=== PATIENT | female | born 1970 | race Caucasian/White ===

== ENCOUNTER 2019-02-08 23:47 | Emergency (ER) | payer BC, OTHER ==
[~2019-02-08] VITALS: Ht 160 cm; Wt 86.2 kg
[2019-02-08] MEDS ORDERED: LIDOCAINE/EPI 2% 1:100,00 (XYLOCAINE) 20 ML VIAL ONE (23:53)
[2019-02-09] MEDS ORDERED: TETANUS & DIPHTHERIA TOX,ADULT 0.5 ML (TENIVAC) IM ONE (00:15)
[2019-02-09] MEDS ORDERED: TETANUS,DIPTH,PERTUSS P/F (BOOSTRIX) 0.5 ML VIAL IM ONE (00:30)
--- NOTE | 2019-02-09 00:58 | ED Lower Extremity ---
General Chief Complaint: Laceration Stated Complaint: RIGHT LEG LAC Nursing Triage Note: [place] 1500 [place] and casued laceration to right lower anterior leg. unknown tetanus Nursing Sepsis Screen: No Definite Risk Source: patient History of Present Illness Date Seen by Provider: Feb 08, 2019 Time Seen by Provider: 23:49 Initial Comments 48-year-old female presenting with complaints of laceration to her right lower extremity. She states that she was at the [place] and walking on some rocks and she slipped and cut her leg. She has multiple cuts to her right lower leg. She states that this happened around 3 or 4 this afternoon. She continued to the physician stated howe. She had gone home and rinsed it off and then decided that she needed to have have repairing it. 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 She cannot remember when her last tetanus shot was for sure. Allergies and Home Medications Allergies Coded Allergies: Sulfa (Sulfonamide Antibiotics) (Verified Allergy, Unknown, 02/09/19) Home Medications Amoxicillin/Potassium Clav 1 Each Tablet, 1 EACH PO BID Prescribed by: RONI LYNN on 02/09/19 0059 Patient Home Medication List Home Medication List Reviewed: Yes Review of Systems Constitutional: No chills, No dizziness, No fever, No malaise EENTM: no symptoms reported Respiratory: no symptoms reported Cardiovascular: no symptoms reported Gastrointestinal: no symptoms reported Genitourinary: no symptoms reported Musculoskeletal: other (mild pain at the site of the cuts) Skin: see HPI Psychiatric/Neurological: Denies Numbness, Denies Paresthesia, Denies Weakness Past Npqolni-Tkznxk-Ohiqpo Hx Past Med/Social Hx: Reviewed Nursing Past Med/Soc Hx Patient Social History Alcohol Use: Denies Use Recreational Drug Use: No Smoking Status: Never a Smoker 2nd Hand Smoke Exposure: No Recent Foreign Travel: No Contact w/Someone Who Travel: No Recent Infectious Disease Expo: No Recent Hopitalizations: No Physical Abuse: No Sexual Abuse: No Mistreated: No Fear: No Seasonal Allergies Seasonal Allergies: No Past Medical History Surgeries: No Respiratory: No Cardiac: No Neurological: No Genitourinary: No Gastrointestinal: No Musculoskeletal: No Endocrine: No HEENT: No Cancer: No Psychosocial: No Integumentary: No Blood Disorders: No Physical Exam Vital Signs Vital Signs - First Documented 02/09/19 00:08 Temp 96.8 Pulse 94 Resp 16 B/P (MAP) 162/74 (103) Pulse Ox 100 O2 Delivery Room Air Capillary Refill : Less Than 3 Seconds Height, Weight, BMI Height: 5'3.00" Weight: 190lbs. oz. 86.541511jh; BMI Method:Stated General Appearance: WD/WN, no apparent distress Cardiovascular: normal peripheral pulses Legs: right leg soft tissue tenderness (mild tenderness at the site of the cuts on her right lower leg) Neurologic/Tendon: normal sensation, normal motor functions, normal tendon functions Neurologic/Psychiatric: alert, oriented x 3 Skin: warm/dry, other (multiple linear lacerations to the right lower extremity. Patient states that they happened from falling and hitting against concrete and rocks where they have broken up a Dam and built a new one) Procedures/Interventions Wound Location: Lower Extremities (right lower leg y shaped laceration 4.6 cm long with 2.7 cm extending out on the Y shaped cut. Several more superficial abrasions are present as well) Wound's Depth, Shape: linear (Y shaped with 4.6 cm long and 2.7 cm on extending section ) Wound Explored: contaminated (was open since around 1500 and was [place]) Anesthesia: Lidocaine w/ Epi Suture: Ethlion Suture Size: 4-0 Number of Sutures: 15 Layer Closure?: 1 Sterile Dressing Applied?: Yes Progress Patient was prepped and draped with sterile drapes from the suture kit. Her wound was scrubbed and cleaned with chlorhexidine soap and sterile saline. There were no foreign objects noted in the wound. The laceration did extend down into the subcutaneous fat. Bleeding was controlled with 2% lidocaine with epinephrine used for anesthetic. She tolerated the cleaning well without any immediate complication. Then using 4-0 Ethilon suture a total of 15 simple interrupted stitches were placed to approximate the edges and repair the wound. The Y-shaped wound was repaired and patient tolerated the procedure well without any immediate complication. The wound was cleaned and dressed with a antibiotic ointment and sterile dressing. Counseled on follow-up and return precautions. Advised to have the stitches out in about 10-14 days. Also advised to be seen sooner if she has concerns about infection or problems with the suture Progress/Results/Core Measures Results/Orders My Orders Orders - RONI LYNN MD Lidocaine/Epi 2% 1:100,000 (Xylocaine/Ep (02/08/19 23:53) Tetanus/Diphtheria Inj (Adult) (Tenivac (02/09/19 00:15) Dipht,Pertuss(Acell),Tet Adult (Boostrix (02/09/19 00:30) Amoxicillin/Clavulanate Tablet (Augmenti (02/09/19 00:59) Lidocaine/Epi 2% 1:100,000 (Xylocaine/Ep (02/09/19 01:00) Medications Given in ED Current Medications Medications Dose Ordered Sig/Miriam Route Start Time Stop Time Status Last Admin Dose Admin Lidocaine/ Epinephrine 20 ml STK-MED ONCE .ROUTE 02/08/19 23:53 02/09/19 00:01 DC 02/09/19 00:22 20 ML Tetanus/ Diphtheria Toxoids 0.5 ml ONCE ONCE IM 02/09/19 00:15 02/09/19 00:16 DC 02/09/19 00:24 0.5 ML Vital Signs/I&O 02/09/19 02/09/19 00:08 01:12 Temp 96.8 Pulse 94 95 Resp 16 18 B/P (MAP) 162/74 (103) 142/86 (104) Pulse Ox 100 100 O2 Delivery Room Air Room Air Blood Pressure Mean: 103 Progress Progress Note : Progress Note Wound was cleaned and sutures was used to close the wound edges. Patient tolerated procedure well. As it was opened for 8-9 hours prior to presentation to the emergency department we will start her on antibiotics. Also she had been [place] so again another reason to have her on antibiotics. We will start with a dose of Augmentin here and continue antibiotics at home. Departure Impression Primary Impression: Laceration of right lower leg Qualified Codes: S81.811A - Laceration without foreign body, right lower leg, initial encounter Additional Impression: Abrasion of multiple sites of right lower extremity Qualified Codes: S80.811A - Abrasion, right lower leg, initial encounter Disposition: 01 HOME, SELF-CARE Condition: Stable Departure-Patient Inst. Decision time for Depature: 00:56 Referrals: [facility] [place] Patient Instructions: Laceration Repair With Stitches (DC), Skin Abrasions (DC) Add. Discharge Instructions: Keep clean and dry for first 24 hours. Then you may wash with soap and water but do not soak the wound. You may dress it with antibiotic ointment and a clean dressing 2-3 times a day until the stitches are removed in 10-14 days or be seen sooner if concerns for infection Take the antibiotic until gone All discharge instructions reviewed with patient and/or family. Voiced understanding. Scripts Amoxicillin/Potassium Clav (Augmentin 875-125 Tablet) 1 Each Tablet 1 EACH PO BID for 10 Days, #20 TAB 0 Refills Prov: RONI LYNN MD 02/09/19 RONI LYNN MD Feb 09, 2019 00:58
[2019-02-09] MEDS ORDERED: AUGMENTIN 875 MG TAB (AMOXICILLIN/CLAVULANATE) PO STA (00:59)
[2019-02-09] MEDS ORDERED: AMOX-358 PO (00:59)
[2019-02-09] MEDS ORDERED: LIDOCAINE/EPI 2% 1:100,00 (XYLOCAINE) 20 ML VIAL INJ STA (01:00)
[2019-02-09 01:12] VITALS: BP 142/86
== END 2019-02-09 01:03 | disposition home or self-care (01) ==
LOC: ER FS 23:51
DX: S81.811A Laceration without foreign body, right lower leg, initial encounter (principal); Z88.2 Allergy status to sulfonamides; W01.118A Fall on same level from slipping, tripping and stumbling with subsequent striking against other sharp object, initial encounter; Y93.01 Activity, walking, marching and hiking
CPT/HCPCS: 90471; 90714